=== PATIENT | female | born 1965 | race Caucasian/White ===

== ENCOUNTER 2018-03-28 11:03 | Inpatient (IN) | payer OTHER, MEDICAID ==
[2018-03-28] VITALS (49 sets, daily range): BP systolic 61–125; BP diastolic 30–83
[~2018-03-28] VITALS: Ht 157.5 cm; Wt 69.9 kg
[2018-03-28] MEDS ORDERED: NOREPINEPHRINE 4 MG in DEXT 5% WATER 246 ML IV ONE (11:30)
[2018-03-28] MEDS ORDERED: PIPERACILLIN/TAZ 3.375G PREMIX 50 ML IV ONE (11:30)
[2018-03-28] MEDS ORDERED: NOREPINEPHRINE 4MG/250ML PMX 250 ML IV ONE (11:37)
[2018-03-28] MEDS ORDERED: FENTANYL CITRATE/PF 50MCG/ML 2ML VIAL IV ONE (11:45)
[2018-03-28 11:57] LABS: BG BASE EXCESS -12.9 mmol/L (-2.0-2.0); BG CARBOXYHEMOGLOBIN 0.4 % (0.5-1.5); BG FRACTION INSPIRED OXYGEN 21; BG HCO3 ACT 11.5 mmol/L (22.0-26.0); BG METHEMOGLOBIN 0.2 % (0.0-1.5); BG OXYHEMOGLOBIN 96.4 % (94.0-97.0); BG PH 7.316 (7.350-7.450); BG PO2 109.6 mmHg (75.0-100.0); BG SAMPLE SITE RIGHT BRACHIAL; BG TOTAL HEMOGLOBIN 11.1 g/dL (12.0-18.0); BG VENT MODE ROOM AIR
[2018-03-28 12:07] LABS: HEMATOCRIT. 31.9 % (36.0-48.0); HEMOGLOBIN. 10.4 g/dL (12.0-16.0); MEAN CORPUSCULAR HEMOGLOBIN 32.6 pg (28.0-32.0); MEAN CORPUSCULAR VOLUME 99.8 fL (81.0-99.0); RED BLOOD CELL COUNT 3.19 mill/uL (4.2-5.4); RED CELL DISTRIBUTION WIDTH 19.4 % (11.6-14.6)
[2018-03-28 12:15] LABS: CHLORIDE 92 mEq/L (98-107)
[2018-03-28 12:29] LABS: INR 1.7; PROTHROMBIN TIME 16.7 sec (9.1-11.1)
[2018-03-28 12:30] LABS: PLATELET ESTIMATE SLIGHTLY DECREASED
[2018-03-28 12:31] LABS: MEAN PLATELET VOLUME 10.6 fl (7.4-10.4); PLATELET 122 x1000/uL (130-400)
[2018-03-28 12:33] LABS: PARTIAL THROMBOPLASTIN TIME 110.8 sec (23.4-31.0)
[2018-03-28] MEDS ORDERED: SODIUM CHLORIDE 0.9% 1000ML BAG (SEPSIS BOLUS) IV ONE (13:15)
[2018-03-28] MEDS ORDERED: VANCOMYCIN 1 G PREMIX 200 ML IV SCH (13:15)
[2018-03-28] MEDS ORDERED: ALBUMIN HUMAN 12.5GM/50ML (25%) IV ONE (13:15)
[2018-03-28] MEDS ORDERED: MORPHINE SULFATE 4 MG/ML CPJ (NOT FOR IM USE) IV PRN (15:15)
[2018-03-28] MEDS: HYDROMORPHONE HCL/PF 2MG/ML CPJ IM PRN ×2 (15:36→21:24)
[2018-03-28] MEDS: ONDANSETRON HCL 4MG/2ML INJ IV PRN (15:36)
[2018-03-28] MEDS ORDERED: NOREPINEPHRINE 16 MG in DEXT 5% WATER 234 ML IV PRN (15:45)
[2018-03-28] MEDS ORDERED: GUAIFENESIN 200MG/10ML SUGAR FREE UDC PO PRN (16:00)
[2018-03-28] MEDS ORDERED: DIPHENHYDRAMINE 50MG/ML VIAL IV PRN (16:00)
[2018-03-28] MEDS ORDERED: HYDROCODONE/ACETAMINOPHEN 5/325MG TABLET PO PRN (16:00)
[2018-03-28] MEDS ORDERED: ONDANSETRON HCL 4MG/2ML INJ IV PRN (16:00)
[2018-03-28] MEDS ORDERED: PANTOPRAZOLE SODIUM 40 MG/VIAL IV SCH (16:00)
[2018-03-28] MEDS ORDERED: IPRATROPIUM/ALBUTEROL 0.5-3(2.5)MG/3ML NEB INH PRN (16:00)
[2018-03-28] MEDS ORDERED: PIPERACILLIN/TAZ 3.375G PREMIX 50 ML IV SCH (16:00)
[2018-03-28] MEDS ORDERED: CLONIDINE 0.1MG TABLET PO PRN (16:00)
[2018-03-28] MEDS ORDERED: DOCUSATE SODIUM 100MG CAPSULE PO PRN (16:00)
[2018-03-28] MEDS ORDERED: DEXTROSE 50% WATER 50ML SYRINGE IV PRN (16:00)
[2018-03-28] MEDS: BLOOD SUGAR DIAGNOSTIC STRIP TEST SCH ×2 (16:30→21:42)
[2018-03-28] MEDS: INSULIN LISPRO 100 UNITS/ML SUBCUT SCH ×2 (17:00→21:00)
[2018-03-28] MEDS: PANTOPRAZOLE SODIUM 40 MG/VIAL IV SCH (17:55)
[2018-03-28] MEDS ORDERED: PHYTONADIONE 10MG/ML AMP SUBCUT NR (18:00)
[2018-03-28] MEDS: METOCLOPRAMIDE HCL 10MG/2ML VIAL IV SCH ×2 (18:14→23:53)
[2018-03-28] MEDS ORDERED: NOREPINEPHRINE 4 MG in DEXT 5% WATER 246 ML IV PRN (18:30)
[2018-03-28] MEDS ORDERED: SODIUM CHLORIDE 0.9% SUBCUT NR (18:30)
[2018-03-28] MEDS ORDERED: OCTREOTIDE SUBCUT NR (18:30)
[2018-03-28 19:59] LABS: HEMOGLOBIN 11.1 g/dL (12.0-16.0)
[2018-03-28] MEDS ORDERED: PIPERACILLIN/TAZ 2.25G PREMIX 50 ML IV SCH (20:00)
[2018-03-28] MEDS ORDERED: MIDODRINE HCL 5MG TABLET PO NR (20:30)
[2018-03-28] MEDS ORDERED: MEROPENEM 2,000 MG in SODIUM CHLORIDE 0.9% 100 ML IV SCH (21:00)
[2018-03-28] MEDS ORDERED: NOREPINEPHRINE 16 MG in DEXT 5% WATER 246 ML IV PRN (21:48)
[2018-03-28] MEDS: SODIUM CHLORIDE 0.9% INJ 3ML FLUSH IVF SCH (22:00)
[2018-03-28] MEDS ORDERED: ALBUMIN HUMAN 25GM/100ML (25%) IV NR (22:45)
[2018-03-28] MEDS: PHENYLEPHRINE 40 MG in DEXT 5% WATER 246 ML IV PRN (23:07)
[2018-03-28] MEDS: OCTREOTIDE 1,000 MCG in SODIUM CHLORIDE 0.9% 98 ML IV SCH (23:27)
[2018-03-28] MEDS: NOREPINEPHRINE 16 MG in DEXT 5% WATER 234 ML IV PRN (23:28)
[2018-03-28] MEDS: MEROPENEM 2,000 MG in SODIUM CHLORIDE 0.9% 100 ML IV SCH (23:53)
[2018-03-29] VITALS (98 sets, daily range): BP systolic 61–131; BP diastolic 26–74
[2018-03-29] MEDS ORDERED: PHYTONADIONE 10MG/ML AMP SUBCUT ONE
[2018-03-29 00:32] LABS: CREATINE KINASE MB FRACTION 4.3 ng/mL (0.5-3.6)
[2018-03-29 00:48] LABS: CREATINE KINASE 115 IU/L (26-192)
[2018-03-29 02:00] LABS: HEMATOCRIT 30.6 % (36.0-48.0); HEMOGLOBIN 10.1 g/dL (12.0-16.0)
[2018-03-29] MEDS: HYDROMORPHONE HCL/PF 2MG/ML CPJ IM PRN (03:28)
[2018-03-29] MEDS: SODIUM CHLORIDE 0.9% INJ 3ML FLUSH IVF SCH ×3 (05:55→21:00)
[2018-03-29] MEDS: BLOOD SUGAR DIAGNOSTIC STRIP TEST SCH ×4 (05:55→21:00)
[2018-03-29 05:56] LABS: HEMATOCRIT. 29.3 % (36.0-48.0); MEAN CORPUSCULAR HEMOGLOBIN 34.1 pg (28.0-32.0); RED BLOOD CELL COUNT 2.93 mill/uL (4.2-5.4); RED CELL DISTRIBUTION WIDTH 19.7 % (11.6-14.6)
[2018-03-29] MEDS: METOCLOPRAMIDE HCL 10MG/2ML VIAL IV SCH ×3 (05:56→17:06)
[2018-03-29] MEDS: INSULIN LISPRO 100 UNITS/ML SUBCUT SCH ×4 (05:56→21:00)
[2018-03-29 06:02] LABS: INR 1.6; PARTIAL THROMBOPLASTIN TIME 40.2 sec (23.4-31.0); PROTHROMBIN TIME 16.1 sec (9.1-11.1)
[2018-03-29 06:38] LABS: CHLORIDE 95 mEq/L (98-107)
[2018-03-29 06:44] LABS: LDL CHOLESTEROL 35 mg/dL (5-100)
[2018-03-29 06:46] LABS: HDL CHOLESTEROL 27 mg/dL (40-59)
[2018-03-29 06:47] LABS: CREATINE KINASE MB FRACTION 3.4 ng/mL (0.5-3.6)
[2018-03-29 06:49] LABS: CREATINE KINASE 79 IU/L (26-192); TOTAL IRON BINDING CAPACITY 184 ug/dL (250-450)
[2018-03-29 07:05] LABS: FOLIC ACID (FOLATE) SERUM > 20.00 ng/mL (>5.38); VITAMIN B12 SERUM > 2000.0 pg/mL (211-911)
[2018-03-29 07:33] LABS: FERRITIN 882 ng/mL (10-291)
[2018-03-29 07:40] LABS: PLATELET 57 x1000/uL (130-400)
[2018-03-29 07:43] LABS: HEPATITIS B SURFACE ANTIGEN NEGATIVE
[2018-03-29 07:48] LABS: PLATELET ESTIMATE MARKEDLY DECREASED
[2018-03-29 07:54] LABS: AMYLASE 2679 IU/L (25-115)
[2018-03-29] MEDS: PANTOPRAZOLE SODIUM 40 MG/VIAL IV SCH ×2 (07:57→17:05)
[2018-03-29] MEDS: MIDODRINE HCL 5MG TABLET PO SCH ×3 (07:58→17:04)
[2018-03-29 08:12] LABS: HEPATITIS A AB IGM NEGATIVE (NEGATIVE)
[2018-03-29] MEDS ORDERED: LACTULOSE 20G/30ML UDC PO NR (08:30)
[2018-03-29] MEDS ORDERED: DEXTROSE 10% WATER 500 ML IV SCH (09:00)
[2018-03-29] MEDS ORDERED: SODIUM BICARBONATE 4% (2.4MEQ) 5ML VIAL IV ONE (09:11)
[2018-03-29] MEDS ORDERED: LIDOCAINE HCL 1% 20ML VIAL (Pyxis) INJ ONE (09:12)
[2018-03-29] MEDS ORDERED: DEXT 10% WATER 1,000 ML IV SCH (09:15)
[2018-03-29] MEDS: ONDANSETRON HCL 4MG/2ML INJ IV PRN ×2 (14:47→20:21)
[2018-03-29] MEDS ORDERED: METHADONE HCL 10MG TABLET PO SCH (16:45)
[2018-03-29] MEDS: MEROPENEM 2,000 MG in SODIUM CHLORIDE 0.9% 100 ML IV SCH (21:55)
[2018-03-29] MEDS: NOREPINEPHRINE 16 MG in DEXT 5% WATER 234 ML IV PRN (21:56)
[2018-03-29] MEDS ORDERED: ALBUMIN HUMAN 25GM/100ML (25%) IV NR (22:30)
[2018-03-29] MEDS ORDERED: SODIUM CHLORIDE 0.9% 500 ML IV ONE (22:30)
[2018-03-29] MEDS: VASOPRESSIN 10 UNIT in SODIUM CHLORIDE 0.9% 99.5 ML IV PRN (23:59)
[2018-03-30] VITALS (63 sets, daily range): BP systolic 37–102; BP diastolic 17–61
[2018-03-30] MEDS: OCTREOTIDE 1,000 MCG in SODIUM CHLORIDE 0.9% 98 ML IV SCH ×2
[2018-03-30] MEDS: ONDANSETRON HCL 4MG/2ML INJ IV PRN (02:21)
[2018-03-30] MEDS: PHENYLEPHRINE 40 MG in DEXT 5% WATER 246 ML IV PRN ×2 (02:24→06:41)
[2018-03-30] MEDS: VASOPRESSIN 10 UNIT in SODIUM CHLORIDE 0.9% 99.5 ML IV PRN (03:51)
[2018-03-30] MEDS: SODIUM CHLORIDE 0.9% INJ 3ML FLUSH IVF SCH (05:53)
[2018-03-30] MEDS: BLOOD SUGAR DIAGNOSTIC STRIP TEST SCH (05:54)
[2018-03-30] MEDS: INSULIN LISPRO 100 UNITS/ML SUBCUT SCH (05:54)
[2018-03-30] MEDS ORDERED: METOCLOPRAMIDE HCL 10MG/2ML VIAL IV SCH (06:00)
[2018-03-30] MEDS: METOCLOPRAMIDE HCL 10MG/2ML VIAL IV SCH ×2 (06:39)
[2018-03-30] MEDS: PANTOPRAZOLE SODIUM 40 MG/VIAL IV SCH (07:57)
[2018-03-30] MEDS: MIDODRINE HCL 5MG TABLET PO SCH (07:57)
[2018-03-30] MEDS ORDERED: ALBUMIN HUMAN 25GM/100ML (25%) IV NR (08:15)
[2018-03-30] MEDS ORDERED: SODIUM CHLORIDE 0.9% 100 ML IV ONE (08:26)
[2018-03-30 08:51] LABS: HEMATOCRIT 25.9 % (36.0-48.0); HEMOGLOBIN 7.8 g/dL (12.0-16.0)
[2018-03-30] MEDS ORDERED: SODIUM BICARBONATE 8.4% 1 MEQ/ML 50ML SYR IV NR ×3 (09:45→12:24)
[2018-03-30] MEDS ORDERED: PHENYLEPHRINE 80 MG in DEXT 5% WATER 492 ML IV PRN (09:45)
[2018-03-30] MEDS ORDERED: DEXTROSE 50% WATER 50ML SYRINGE IV ONE (09:45)
[2018-03-30] MEDS ORDERED: INSULIN REGULAR (HUMULIN R) UD 100 UNITS/ML SYR IV ONE (09:45)
[2018-03-30] MEDS ORDERED: DEXTROSE 50% WATER 50ML SYRINGE IV NR (09:45)
[2018-03-30] MEDS ORDERED: CALCIUM GLUCONATE 1,000 MG in DEXT 5% WATER 90 ML IV ONE (09:45)
[2018-03-30] MEDS ORDERED: SODIUM BICARBONATE 8.4% 1 MEQ/ML 50ML SYR IV ONE (09:45)
[2018-03-30 10:06] LABS: BG BASE EXCESS -27.6 mmol/L (-2.0-2.0); BG CARBOXYHEMOGLOBIN 0.3 % (0.5-1.5); BG DEOXYHEMOGLOBIN 0.3 % (0.0-5.0); BG FRACTION INSPIRED OXYGEN 100; BG HCO3 ACT 5.2 mmol/L (22.0-26.0); BG METHEMOGLOBIN 0.8 % (0.0-1.5); BG OXYGEN SATURATION 99.7 % (92.0-98.5); BG OXYHEMOGLOBIN 98.6 % (94.0-97.0); BG PCO2 34.5 mmHg (35.0-45.0); BG PH 6.795 (7.350-7.450); BG SAMPLE SITE RIGHT BRACHIAL; BG TIDAL VOLUME(mL) 500 mL; BG TOTAL HEMOGLOBIN 7.6 g/dL (12.0-18.0); BG VENT MODE VENT - A/C; BG VENT RATE 18 set
[2018-03-30 10:29] LABS: PHOSPHORUS 17.3 mg/dL (2.5-4.9)
[2018-03-30] MEDS ORDERED: CALCIUM GLUCONATE 1,000 MG in DEXT 5% WATER 90 ML IV NR (10:30)
[2018-03-30] MEDS ORDERED: INSULIN REGULAR (HUMULIN R) UD 100 UNITS/ML SYR IV NR (10:30)
[2018-03-30] MEDS ORDERED: LORAZEPAM 2MG/ML CPJ IV PRN (10:45)
[2018-03-30] MEDS ORDERED: IPRATROPIUM/ALBUTEROL 0.5-3(2.5)MG/3ML NEB HHN SCH (11:30)
[2018-03-30] MEDS ORDERED: MEROPENEM 1,000 MG in SODIUM CHLORIDE 0.9% 100 ML IV SCH ×2 (12:22→21:00)
[2018-03-30] MEDS ORDERED: FENTANYL CITRATE/PF 50MCG/ML 2ML VIAL IV ONE (12:30)
[2018-03-30] MEDS ORDERED: FENTANYL CITRATE/PF 50MCG/ML 2ML VIAL IV SCH (12:45)
[2018-03-30] MEDS ORDERED: SODIUM POLYSTYRENE SULFONATE 15 G/60 ML BOT PR NR (13:30)
[2018-03-30] MEDS ORDERED: ETOMIDATE 2MG/ML 10ML VIAL IV ONE (14:23)
[2018-03-30] MEDS ORDERED: SODIUM CHLORIDE 0.9% 10ML VIAL ONE (14:23)
[2018-03-30] MEDS ORDERED: VECURONIUM BROMIDE 10 MG/VIAL IV ONE (14:23)
[2018-03-30] MEDS ORDERED: VANCOMYCIN 1 G PREMIX 200 ML IV SCH (15:00)
== END 2018-03-30 15:00 | disposition expired | DRG 720 ==
LOC: ER 11:28 → EDBEDREQ 12:14 → CANRESERV 12:24 → ENRESERV 12:24 → MICUSO 13:16 → EDBEDREQ 13:19 → ENRESERV 13:30
PROVIDERS: ADMIT Family Medicine; ATTEND Family Medicine
PROC: 30233M1 Transfusion of Nonautologous Plasma Cryoprecipitate into Peripheral Vein, Percutaneous Approach (ICD-10-PCS; 2018-03-28)
PROC: 0W9G3ZZ Drainage of Peritoneal Cavity, Percutaneous Approach (ICD-10-PCS; principal; 2018-03-29)
PROC: 30233N1 Transfusion of Nonautologous Red Blood Cells into Peripheral Vein, Percutaneous Approach (ICD-10-PCS; 2018-03-29)
PROC: 5A1935Z Respiratory Ventilation, Less than 24 Consecutive Hours (ICD-10-PCS; 2018-03-30)
PROC: 0BH18EZ Insertion of Endotracheal Airway into Trachea, Via Natural or Artificial Opening Endoscopic (ICD-10-PCS; 2018-03-30)
DX: A41.9 Sepsis, unspecified organism (principal); J96.00 Acute respiratory failure, unspecified whether with hypoxia or hypercapnia; K76.7 Hepatorenal syndrome; R65.21 Severe sepsis with septic shock; E43 Unspecified severe protein-calorie malnutrition; D61.818 Other pancytopenia; K85.90 Acute pancreatitis without necrosis or infection, unspecified; K65.2 Spontaneous bacterial peritonitis; I46.9 Cardiac arrest, cause unspecified; N17.9 Acute kidney failure, unspecified; K76.6 Portal hypertension; E87.5 Hyperkalemia; I50.9 Heart failure, unspecified; K92.2 Gastrointestinal hemorrhage, unspecified; R18.8 Other ascites; K72.90 Hepatic failure, unspecified without coma; Z87.891 Personal history of nicotine dependence; K80.20 Calculus of gallbladder without cholecystitis without obstruction; Z99.2 Dependence on renal dialysis; N27.0 Small kidney, unilateral; N18.6 End stage renal disease; K74.60 Unspecified cirrhosis of liver; N20.0 Calculus of kidney; E87.2 Acidosis; Z93.1 Gastrostomy status; E87.1 Hypo-osmolality and hyponatremia; E16.2 Hypoglycemia, unspecified; D68.4 Acquired coagulation factor deficiency; B19.20 Unspecified viral hepatitis C without hepatic coma; Z76.82 Awaiting organ transplant status; Z66 Do not resuscitate
CPT/HCPCS: 36415; 36600; 49083; 71045; 74018; 74176; 76700; 80048; 80061; 80076; 80202; 82040; 82105; 82140; 82150; 82375; 82550; 82553; 82607; 82728; 82746; 82805; 82962; 83540; 83550; 83605; 83615; 83735; 84100; 84145; 84484; 85014; 85018; 85049; 85384; 86705; 86709; 86803; 86850; 86900; 86920; 86927; 87077; 87186; 87340; 88108; 88312; 93005; 93970; 94002; 96361; 96374; 96375; 99291; A4216; C9113; J0610; J1170; J1815; J2185; J2354; J2370; J2405; J2543; J2765; J3010; J3370; J3430; J3490; J7030; J7040; J7050; J7060; P9016; P9017; P9047